=== PATIENT | female | born 1965 | race Caucasian/White ===

== ENCOUNTER 2025-08-28 10:22 | Outpatient (AMB) | payer BC, SELFPAY ==
--- NOTE | 2025-08-28 07:44 | MHC.PC.OV ---
Intake Visit Reasons: ? sinus infection PFSH Surgical History (Updated 08/27/25 @ 15:58 by Kathryn Robertson) History of colonoscopy (~01/02/17) Coding
--- NOTE | 2025-08-28 10:17 | A.OFFPC_ITS ---
Vital Signs 08/28/25 10:26 Height 5 ft 5 in Weight 166 lb 6 oz BMI 27.7 BP 120/76 Blood Pressure Location Lt brachial Position Sitting Respiration 16 Pulse 71 Pulse Source Pulse Oximeter Temp 97.3 F Temp Source Temporal Artery Scan Pulse Oximetry (%) 97 Oxygen Delivery Method Room Air Intake Visit Reasons: ? sinus infection Arc Welder Required: No Accompanied by: Self / Same As Patient Allergies erythromycin base Allergy (Intermediate, Verified 08/28/25 10:27) GI issues Medication List - Last Reconciled 08/28/25 by Mala Bacon MD aspirin 81 mg PO DAILY clobetasol 0.05% topical 2XW levocetirizine 5 mg PO DAILY metoprolol tartrate 50 mg PO BID multivitamin 1 tab PO DAILY pantoprazole 40 mg PO DAILY pravastatin 80 mg PO DAILY semaglutide (weight loss) (Wegovy) 2.4 mg subcut QWEEK Tobacco use date assessed: 08/28/25 Dental Screening Dental Screen Date: 08/28/25 Did you have a dental visit in the last 12 months?: Yes Was dental information given to patient?: Patient has dentist HPI HPI Comments History of Present Illness Details The patient is a 60-year-old female presenting to reestablish care with concern for sinusitis. Acute sinusitis: Symptoms started 2.5 weeks ago with a cold. Developed nasal congestion and green discharge, beginning Monday and persisting. Increased discharge led to nosebleeds from frequent blowing. Experiences ear pressure worsened by leaning forward. Humidifier and saline irrigation were utilized. No fever, chills, or ear pain. History of facial trauma: Past facial trauma resulted in recurrent drainage issues with colds. Expresses desire for ENT evaluation to explore possible structural issues due to trauma. Obesity/now in overweight category- on wegovy, tolerating well HTN-stable CAD s/p CABG-stable Social History: - Works from home occasionally - Has a daughter Review of Systems - Respiratory: Reports nasal congestion and green nasal discharge, denies wheezing. - Constitutional: Denies fever and chill s. - Ears: Denies pain, but reports ear pre ssure when blowing the nose. - Nasal: Reports epistaxis from frequent nose blowing. - General: No new significant issues rep orted. Physical Exam - Ears- Clear with no fluid and normal t ympanic membranes bilaterally - Throat- Clear with no abnormalities. - Respiratory- No wheezing noted on lung auscultation; clear breath sounds. - Cardiology- Soft murmur detected; no o ther abnormalities. - Abdomen- Soft with normal bowel sounds . - Neurology- No dizziness noted during e xamination. Assessment and Plan 1. Acute sinusitis - augmentin 10-day course. - Continue saline irrigation. - ENT referral pending. 2. HTN- continue current regimen 3. Obesity- continue wegovy 4. CAD- continue current regimen Follow up as scheduled in 1 month Discussion Notes I discussed with the patient the likely diagnosis of acute sinusitis, given her symptoms of nasal congestion, green discharge, and ear pressure. We decided to initiate treatment with amoxicillin for 10 days due to the persistence of symptoms and the lack of contraindications. I emphasized the importance of saline irrigation to manage nasal symptoms and prevent dryness. The patient expressed concern about potential sinus structural changes following a past trauma, so we discussed ENT evaluation to assess for any underlying issues. Patient Instructions - Take augmentin twice daily for 10 days with food. - Continue saline nasal sprays twice angela ly. - Use a humidifier at home. - Monitor symptoms, especially nosebleed s. - Complete the ENT referral and follow u p for further evaluation. - Start zinc supplements after finishing antibiotics. - Maintain effective hydration and monit or weight with Wegovy. 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 How often do you have a drink containing alcohol?: Monthly or less 2. How many drinks containing alcohol do you have on a typical day when you are drinking?: 1 or 2 3. How often do you have six or more drinks on one occasion?: Never Total Score: 1 Physical exam (Primary Care) Vital Signs: Last Vital Signs Temp 97.3 F 08/28/25 10:26 Pulse 71 08/28/25 10:26 Resp 16 08/28/25 10:26 BP 120/76 08/28/25 10:26 Pulse Ox 97 08/28/25 10:26 Oxygen Delivery Method Room Air 08/28/25 10:26 BMI result Body Mass Index 27.7 Tobacco/Smoking Status: Tobacco use Status Tobacco use date assessed 08/28/25 08/28/25 10:18 Patient Tobacco Use Status Former Tobacco user 08/28/25 10:33 e-Cigarette/Vaping Use Never Used 08/28/25 10:33 Coding Level of Care Code Est Pt Level 4 (61864) Complex EM visit Add On G2211 Diagnoses Acute bacterial sinusitis J01.90; B96.89 Primary hypertension I10 Overweight (BMI 25.0-29.9) E66.3 Assessment & Plan Assessment & Plan (1) Acute bacterial sinusitis: Code(s): J01.90 - Acute sinusitis, unspecified; B96.89 - Other specified bacterial agents as the cause of diseases classified elsewhere Category: Medical (2) Primary hypertension: Code(s): I10 - Essential (primary) hypertension Category: Medical (3) Overweight (BMI 25.0-29.9): Code(s): E66.3 - Overweight Category: Medical Plan - take augmentin twice daily for 10 days. - Saline irrigation twice daily. - Monitor sinus symptoms. - ENT referral post-antibiotics. - Consider zinc supplements after antibiotics. - Follow-up as needed based on symptom progression. Orders: Referrals Ear/Nose/Throat Referral J32.9 - Chronic sinusitis, unspecified Medications: New amoxicillin-pot clavulanate 875-125 mg 1 tab PO BID 20 tabs 0RF zinc gluconate 50 mg PO DAILY 30 tabs 5RF
[2025-08-28 10:26] VITALS: BP 120/76; PULSE 71; RESP 16; TEMP 36.3; O2SAT 97; BMI 27.7
--- OUTSIDE RECORDS SUMMARY | 2025-08-28 12:13 | XMS_ITS | Clinical Summary ---
Author Organization [facility] Address [address] [place] [address] Care Team Providers Care Electronic Specialist Name Role Phone Unknown Primary Care Provider [phone] Allergies No known active allergies Medications levocetirizine (XYZAL) 5 MG tablet 2 Active metoPROLOL TARTRATE (LOPRESSOR) 50 MG tablet metoprolol tartrate 50 mg tablet Active pravastatin (PRAVACHOL) 80 MG tablet pravastatin 80 mg tablet 2 Active Social History Tobacco Use Types Packs/Day Years Used Date Smoking Tobacco: Never Assessed Comments Unknown Sex and Gender Information Value Date Recorded Sex Assigned at Not on file Legal Sex Female 2:04 PM EDT Gender Identity Not on file Sexual Orientation Not on file Last Filed Vital Signs Vital Sign Reading Time Taken Comments Blood Pressure 150/76 06/12/2022 2:47 PM EDT Pulse 56 06/12/2022 2:47 PM EDT Temperature 36.6 C (97.8 F) 06/12/2022 2:47 PM EDT Respiratory Rate - - Oxygen Saturation 98% 06/12/2022 2:47 PM EDT Inhaled Oxygen Concentration - - Weight - - Height - - Body Mass Index - - Plan of Treatment Health Maintenance Due Date Last Done Comments Hepatitis C Virus Screening 1965 HIV Screening 1978 DTaP/Tdap/Td Vaccines (1 - Tdap) 01/27/1984 Pap Smear (Ages 21-65) 1986 Mammogram 2005 Colonoscopy 2010 Pneumococcal Vaccines 50+ (1 of 1 - PCV) 2015 Zoster (Shingles) Vaccine (1 of 2) 2015 Influenza Vaccine 05/23/2025 07/05/2021, , 07/25/2019, Additional history exists COVID-19 Vaccine (2024- season) 2025 08/20/2021, 02/05/2021, 01/08/2021 RSV Vaccine 50 years and older and Patients (1 - 1-dose 75+ series) 01/27/2040 Hepatitis B Vaccines Aged Out No long er eligible based on patient's age to complete this topic Insurance [facility] Care Teams Electronic Specialist Relationship Specialty Start Date End Date Unknown Unknow Provider Address PCP - General 10/23/21
--- OUTSIDE RECORDS SUMMARY | 2025-08-28 12:13 | XMS_ITS ---
Author Name [facility] Organization Unknown Encounters Encounter Type Encounter Reason Primary Diagnosis Location Date Ambulatory Contusion of rig ht hand, initial encounter [facility] 06/12/2022 Care Team Organization Name Specialty Phone Email Start Date End Da te [facility] 06/12/2022 06/12/2022 [facility] 06/12/2022
--- OUTSIDE RECORDS SUMMARY | 2025-08-28 12:13 | XMS_ITS | Data Portability ---
Author Organization [place] - [facility] Address [address] [place] [id number] Care Team Providers Care Regulatory Attorney Name Role Phone YAMILE NELL Primary Care Provider Assessment Encounter Date Assessment Date Assessment LastModified by Organization Details LastModified Time 12/22/2020 12/22/2020 Overview/History : 55-year-old female with past medical history significant for CAD status post bypass x4 and 2015, hyperlipidemia, new to [facility], who presents with complaints of COVID with persistent fever and cough. Patient had visit with primary care who ordered a chest x-ray to assess for possible pneumonia. Patient had this done at the hospital yesterday but has not heard results yet. Patient states today is the first day that she has not had a fever and that she is definitely feeling better today but still has a dry cough and loss of taste and smell. She has not taken any Tylenol or ibuprofen. She caught COVID from her and he did require hospitalization for oxygen desaturation and pneumonia but has now returned to baseline. Patient reports first developing a fever on 12/10/20 and was reported a positive result on to 12/14/20. She denies any chest pain, shortness of breath at rest, lightheadedness or weakness. She reports adequate p.o. intake. Recently finished course of AMOX for bacterial rhinosinusitis. Exam: afebrile, RRR, hypertensive, normal resps, O2 sat 98% on RA, non-toxic, well appearing. GENERAL: well developed, well nourished, appears stated age, sitting comfortably in no acute distress. HEENT: normocephalic, atraumatic, PERRLA, EOMI, sclera anicteric, nares patent, septum midline, turbinates erythematous, non-edematous, posterior pharynx without erythematous without lesions, mmm. NECK: trachea midline, no masses, cervical lymphadenopathy, or thyromegaly. RESP: normal I:E, breathing non-labored, no accessory muscle use, coarse crackles at the bilateral bases, no wheezes, rhonchi, or rales. CARDIO: RRR, normal S1, S2, no murmurs, rubs, or gallops, radial pulse 2+. MUSK: normal strength, ROM, muscle tone, no atrophy. EXTREMITIES: warm ,well perfused, no cyanosis, swelling or rashes. NEURO: awake, alert, oriented x3, no focal neuro deficits, moving all extremities spontaneously, normal brisk gait. DDx considered, but not limited to: COVID - known + bacterial PNA - less likely, afebrile, non-productive cough, no O2 desat, and recent ABX pleural effusion - unlikely, no decreased breath sounds pneumo - unlikely, no CP or absent breath sounds bronchitis - less likely, no wheeze Work up/Results: patient had CXR performed at hospital yesterday, not yet resulted. Plan/Discussion: -COVID, clinically stable at this time and symptoms improving -Continue symptomatic treatment with OTC Tylenol PRN fever -Continue tessalon perles, mucinex, and albuterol inhaler per PCP -Hydrate well -f/u CXR results with PCP -ER precautions given Thank you for your visit with [facility] today. We cannot always find the exact cause of your symptoms during your initial visit. Please follow up with your primary care provider or specialist to be rechecked or seek medical attention if your symptoms do not go away or get worse. If you develop any new or worsening symptoms and need after hours care, please go to nearest ER and/or call 911. If you have additional concerns or develop a change in your condition between 8am-10pm, please call [facility] at [phone] to help navigate your care. Proper Personal Protective Equipment (PPE), including gloves, eye protection, N95 mask, gown, and shoe covers were donned and doffed appropriately and all equipment cleaned using approved technique with germicidal disposable wipes prior to and after care of this patient according to [facility]'s infection prevention protocols. In order to obtain further information and compare any laboratory results/values, I have accessed patient records on the [employer] [facility]. This information was pertinent in my medical decision making today. Time On Scene with Patient: 00:29:28 taco Not available 12/22/2020 10:49:32 Plan of Treatment Reminders Order Date Submit Date Provider Last Modified By Organization Details Last Modified Time Details Appointments None record ed. Lab None record ed. Referral None record ed. Procedures None record ed. Surgeries None record ed. Imaging None record ed. Medication Orders None record ed. Patient TargetsNo targets recorded. Patient InstructionsNo instructions recorded. Reason for Referral None Reported. Problems Name Problem SNOMED Code Status Onset Date Resolution Date Notes Provider Name and Address Organization Details Recorded Time COVID- 19 [id number] Active 021 JOSEFINA RIZZO [address] [place], [phone] , [place] [facility] 12/22/2020 10:01:00 Problem Notes None recorded. Medical Equipment None Reported. Allergies Allergen ID Allergen Name Allergen Category Reaction Reaction Severity Criticality Documentation Date Start Date Code Code System Note Provider Name and Address Organization Details Recorded Time 025020 erythromy mariangel medicatio n Not available Not available Not available 12/22/2020 4053 RxNorm JOSEFINA RIZZO [address] [place], [phone], [place] [facility] 10:[facility]:53 Medications Name Sig Start Date Stop Date Status Note LastModified by Organization Details LastModified Time amoxicillin 500 mg capsule TAKE 1 CAPSULE BY MOUTH 3 TIMES A DAY FOR 7 DAYS 12/22 completed Not Available Not Available Not Available prednisone 10 mg tablet TAKE 4 TABLETS BY MOUTH EVERY DAY FOR 5 DAYS, TAKE IN AM WITH FOOD 12/22 completed Not Available Not Available Not Available pravastatin 80 mg tablet active Not Available Not Available Not Available benzonatate 100 mg capsule active Not Available Not Available Not Available metoprolol tartrate 50 mg tablet active Not Available Not Available No t Available albuterol sulfate HFA 90 mcg/actuatio n aerosol inhaler active Not Available Not Available Not Available amoxicillin 875 mg-potassium clavulanate 125 mg tablet TAKE 1 TABLET BY MOUTH TWICE A DAY FOR 10 DAYS WITH FOOD OR MILK 12/22 completed Not Available Not Available Not Available aspirin active Not Available Not Avail able Not Available Mucinex active Not Available Not Avail able Not Available Vitals Date Recorded Oxygen saturation Oxygen saturation in Arterial blood by Pulse oximetry Body temperature Heart rate Respiratory rate Systolic And Diastolic Provider Name and Address Organization Details Last Updated DateTime 98 % 98 % 98.3 [degF] 72 /min 20 /min 142/86 mm[Hg] Not Available [facility] 10:06:46 Social History Question Answer Notes LastModified by Organizat ion Details LastModified Time Tobacco Smoking Status Former Smoker JOSEFINA RIZZO [address] [place], [address], [place] [facility] 12/22/2020 10:05:37 Do You Have An Advance Directive? Yes [employer] Information not available 12/22/2020 What Is Your Code Status? Full Code [employer] Information not available 12/22/2020 Excessive Alcohol Or Drug Use No [employer] Information not available 12/22/2020 How Much Tobacco Do You Smoke? 2 PPW [employer] Information not available 12/22/2020 How Many Years Have You Smoked Tobacco? 10 [employer] Information not available 12/22/2020 Sex: Unknown Functional Status None recorded. Mental Status None recorded. Family History Relationship Description Onset Age of this Age Resolved Age Notes LastModified by Organization Details LastModified Time Brother Coronary arterioscler osis 41 [address] Not available 2020 10:06:31 Mother Coronary arterioscler osis badamski Not available 2020 10:06:31 Medical History Condition Response Coronary Artery Disease Y Depression N COPD N Diabetes N Cancer N Stroke N Asthma N High Cholesterol Y Pulmonary Embolism N Hypertension N Kidney Disease N Gynecological HistoryNo gynecological history recorded. Obstetrics History GPAL:G 0 P 0 0 0 0 Past Encounters Encounter ID Performer Location Encounter Start Date Encounter Closed Date Diagnosis/Indication Diagnosis SNOMED-CT Code Diagnosis ICD10 Code Diagnosis IMO Codes Diagnosis Note [id number] JOSEFINA RIZZO [facility] [address] [place] [address] 12/22/2020 09:59:23 12/22/2020 10:55:13 COVID-19 [id number] U07.1 Health Concerns Section Related Observation LastModified by Organization Detai ls LastModified Time None Recorded Concern Status LastModified by Organization Details LastModified Time None Recorded Advance Directives Directive Y: Payers Insurance Date Sequence Insurance Name Policy Number Policy Treviño Covered Member ID Treviño Member ID Guarantor Name 12/21/2020 1 [employer] [id number] Gwen Ponce [id number] Gwen Manasa 12/21/2020 1 [employer] [id number] Gwen Manasa [id number] Gwen Manasa 12/21/2020 1 [employer] [id number] Gwen Ponce [id number] Gwen Manasa 12/21/2020 1 *SELF PAY* Gwen Ponce [id number] Gwen Manasa Notes Date Note Type Note Provider Name and Address Organization Details Recorded Time 12/22/2020 text/html 55-year-old female with past medical history significant for CAD status post bypass x4 and 2015, hyperlipidemia, new to [facility], who presents with complaints of COVID with persistent fever and cough. Patient had visit with primary care who ordered a chest x-ray to assess for possible pneumonia. Patient had this done at the hospital yesterday but has not heard results yet. Patient states today is the first day that she has not had a fever and that she is definitely feeling better today but still has a dry cough and loss of taste and smell. She has not taken any Tylenol or ibuprofen. She caught COVID from her and he did require hospitalization for oxygen desaturation and pneumonia but has now returned to baseline. Patient reports first developing a fever on 12/10/20 and was reported a positive result on to 12/14/20. She denies any chest pain, shortness of breath at rest, lightheadedness or weakness. She reports adequate p.o. intake. Recently finished course of AMOX for bacterial rhinosinusitis. JOSEFINA RIZZO [address], [place], [address], [place] [facility] 12/22/2020 10:49:43 OBGyn Episode No OBEpisode recorded.
--- OUTSIDE RECORDS SUMMARY | 2025-08-28 12:13 | XMS_ITS | Clinical Summary ---
Author Organization [facility] Address [address] [place] [id number] Care Team Providers Care Anesthesiologist Assistant Name Role Phone Mala Bacon MD Primary Care Provider Immunizations Immunization Administration Dates Next Due Hep B, Adolescent or Pediatric 11/06/2013,2012 Hepatitis A 04/17/2014,09/26/2013 Hepatitis B 04/17/2014 IPV 01/12/2016 Influenza, Quad Single Dose PF 0.5mL 6+Mo 2016,09/23/2016 Influenza, trivalent (IIV3), split virus (single-dose) PF 09/21/2015,07/22/2014,07/22/2013 Tdap 12/22/2011,12/19/2010 Typhoid Inactivated 01/22/2018,01/12/2016 Zoster, Recombinant (Shingrix) 01/20/2019 Social History Tobacco Use Types Packs/Day Years Used Date Smoking Tobacco: Never Assessed Comments Unknown Sex and Gender Information Value Date Recorded Sex Assigned at Not on file Legal Sex Female 12:29 AM MST Gender Identity Not on file Sexual Orientation Not on file Plan of Treatment Health Maintenance Due Date Last Done Comments CT Colonography 1965 Cologuard 1965 FOBT/FIT 1965 Sigmoidoscopy 1965 MMR Vaccines (1 of 1 - Stand beck series) 1966 PHQ-9 Depression Screen 1977 Complete Annual HRA 1983 PARAS-7 Anxiety Screen 1983 Cervical Cancer Screening (Pap/HPV) 1986 Pneumococcal Vaccine: 50+ Ye ars (1 of 1 - PCV) 2015 Zoster Vaccines (2 of 2) 03/17/2019 01/20/2019 Mammogram 09/27/2020 09/27/2018, 03/2018, 08/30/2017, Additional history exists DTaP,Tdap,and Td Vaccines (3 - Td or Tdap) 12/21/2021 12/22/2011, 12/19/2010 COVID-19 Vaccine (1 - 2023-2 5 season) 2025 Influenza Vaccine (#1) 2025 7, 09/23/2016, 09/21/2015, Additional history exists Colonoscopy 01/02/2027 01/02/2017 Colorectal Cancer Screening 01/02/2027 RSV Vaccine (SCDM) (1 - 1-do se 75+ series) 01/27/2040 Hepatitis B Vaccines Completed 04/17/2014, 11/06/2013, 09/26/2013 Care Teams Anesthesiologist Assistant Relationship Specialty Start Date End Date Mala Bacon MD [address] [place] [address] PCP - General 10/21/20
== END 2025-08-28 11:10 | disposition home or self-care (01) ==
LOC: HO.HMCHD 10:23
PROVIDERS: PCP Internal Medicine; Visit Provider Internal Medicine
DX: J01.90 Acute sinusitis, unspecified (principal); B96.89 Other specified bacterial agents as the cause of diseases classified elsewhere; I10 Essential (primary) hypertension; E66.3 Overweight

== ENCOUNTER 2025-09-24 09:20 | Outpatient (AMB) | payer BC, SELFPAY ==
--- NOTE | 2025-09-24 09:32 | A.OFFPC_ITS ---
Vital Signs 09/24/25 09:33 Height 5 ft 5 in Weight 167 lb 2 oz BMI 27.8 BP 122/76 Blood Pressure Location Lt brachial Position Sitting Respiration 16 Pulse 68 Pulse Source Pulse Oximeter Temp 97.1 F Temp Source Temporal Artery Scan Pulse Oximetry (%) 97 Oxygen Delivery Method Room Air Intake Visit Reasons: Est Patient Speech Language Pathologist Assistant Required: No Accompanied by: Self / Same As Patient Allergies erythromycin base Allergy (Intermediate, Verified 09/24/25 09:35) GI issues amoxicillin Adverse Reaction (Intermediate, Verified 09/24/25 09:35) Itching Medication List - Last Reconciled 09/24/25 by Mala Bacon MD aspirin 81 mg PO DAILY clobetasol 0.05% topical 2XW levocetirizine 5 mg PO DAILY metoprolol tartrate 50 mg PO BID multivitamin 1 tab PO DAILY pantoprazole 40 mg PO DAILY pravastatin 80 mg PO DAILY semaglutide (weight loss) (Wegovy) 2.4 mg (0.75 mL) subcut QWEEK zinc gluconate 50 mg PO DAILY Tobacco use date assessed: 08/28/25 Dental Screening Dental Screen Date: 08/28/25 HPI HPI Comments History of Present Illness Details The patient is a 60 year old female presenting for follow up on chronic issues. Health Maintenance: The patient is compliant with health screenings. A recent mammogram was normal. The patient had a gynecology visit with Meño at [facility] during the summer. The patient has an upcoming cardiology appointment with Dr. Taylor. Hypertension: The patient's blood pressure has been stable and is monitored periodically. 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 Hyperlipidemia- on statin Impaired fasting glucose- due for repeat a1c Allergy: The patient reports a hypersensitivity to amoxicillin, which is now documented in the allergy profile. [facility] Medical History (Updated 09/24/25 @ 10:00 by Mala Bacon MD) Hyperlipidemia, unspecified Coronary artery disease Impaired fasting glucose Overweight (BMI 25.0-29.9) Primary hypertension Acute bacterial sinusitis Recurrent sinusitis Surgical History (Updated 09/24/25 @ 10:01 by Mala Bacon MD) H/O breast biopsy Hx of CABG History of colonoscopy (~01/02/17) Family History (Updated 09/23/25 @ 22:55 by Mala Bacon MD) Mother FH: CABG (coronary artery bypass surgery) Brother Heart attack Other Breast cancer Congestive heart failure Primary hypertension Social History Housing: House Patient Tobacco Use Status: Former Tobacco user Years Smoked: <10 years of social smoking e-Cigarette/Vaping Use: Never Used service: No Current occupational status: employed Current occupation: [employer] Questionnaire PHQ-9 Over the last 2 weeks, how often have you been bothered by any of the following problems? 1. Little interest or pleasure in doing things: not at all 2. Feeling down, depressed, or hopeless: not at all 3. Trouble falling or staying asleep, or sleeping too much: not at all 4. Feeling tired or having little energy: not at all 5. Poor appetite or overeating: not at all 6. Feeling bad about yourself - or that you are a failure or have let yourself or your family down: not at all 7. Trouble concentrating on things, such as reading the newspaper or watching television: not at all 8. Moving or speaking so slowly that other people could have noticed. Or the opposite - being so fidgety or restless that you have been moving around a lot more than usual: not at all 9. Thoughts that you would be better off or of hurting yourself in some way: not at all Total score: 0 Depression Screening Interpretation: Negative Depression Screening Done: Yes 34860 - PHQ-9 Billing: Yes Source: Developed by Drs. Al Keys, Honey Bergman, Dante Doherty and colleagues, with an educational juan from [employer]. AUDIT C Alcohol Use Questionnaire (AUDIT-C) 1. How often do you have a drink containing alcohol?: Monthly or less 2. How many drinks containing alcohol do you have on a typical day when you are drinking?: 1 or 2 3. How often do you have six or more drinks on one occasion?: Never Total Score: 1 Review of Systems Narrative Review of Systems -General: Reports feeling good and healthy. -Card: no chest pain, no sob Physical exam (Primary Care) Vital Signs: Last Vital Signs Temp 97.1 F 09/24/25 09:33 Pulse 68 09/24/25 09:33 Resp 16 09/24/25 09:33 BP 122/76 09/24/25 09:33 Pulse Ox 97 09/24/25 09:33 Oxygen Delivery Method Room Air 09/24/25 09:33 BMI result Body Mass Index 27.8 Tobacco/Smoking Status: Tobacco use Status Tobacco use date assessed 08/28/25 09/24/25 09:37 Patient Tobacco Use Status Former Tobacco user 09/24/25 09:37 e-Cigarette/Vaping Use Never Used 09/24/25 09:37 PHQ-9: PHQ-9 Score PHQ-9: Total score 0 09/24/25 10:00 Depression Screening Interpretation: Negative Narrative Physical Exam - Vitals: Blood pressure is 122/76 mmHg. - General: Appears well. - Respiratory: Lungs are clear to auscultation bilaterally - Cardiovascular: Normal heart sounds. Soft murmur across precordium Coding Level of Care Code Est Pt Level 4 (75917) Complex visit Add On G2211 Diagnoses Primary hypertension I10 Impaired fasting glucose R73.01 Coronary artery disease involving habematolel heart, unspecified vessel or lesion type, unspecified whether angina present I25.10 Associated angina: unspecified whether angina present Coronary Disease-Associated Artery/Lesion type: unspecified vessel or lesion type [place] vs. transplanted heart: habematolel heart Mixed hyperlipidemia E78.2 Hyperlipidemia type: mixed hyperlipidemia Additional Codes PHQ-9 - 60011 - PHQ-9 Billing: Yes ([id number]) Assessment & Plan Assessment & Plan (1) Primary hypertension: Code(s): I10 - Essential (primary) hypertension Category: Medical (2) Impaired fasting glucose: Code(s): R73.01 - Impaired fasting glucose Category: Medical (3) Coronary artery disease: Code(s): I25.10 - Atherosclerotic heart disease of habematolel coronary artery without angina pectoris Category: Medical Qualifiers: Associated angina: unspecified whether angina present Coronary Disease- Associated Artery/Lesion type: unspecified vessel or lesion type [place] vs. transplanted heart: habematolel heart Qualified Code(s): I25.10 - Atherosclerotic heart disease of habematolel coronary artery without angina pectoris (4) Hyperlipidemia, unspecified: Code(s): E78.5 - Hyperlipidemia, unspecified Category: Medical Qualifiers: Hyperlipidemia type: mixed hyperlipidemia Qualified Code(s): E78.2 - Mixed hyperlipidemia Plan Assessment and Plan 1. Health Maintenance - The patient is up-to-date with screenings, including a recent normal mammogram and gynecology visit. - Fasting labs, including a cholesterol profile and A1c, have been ordered. - A follow-up physical is scheduled for March. - The patient will continue with cardiology care. 2. Hypertension - The patient's blood pressure is stable at 122/76 mmHg. - Will continue current management and monitoring. 3. Hyperlipidemia - repeat lipid profile - continue statin 4. Impaired fasting glucose-repeat a1c Follow up in 6 months for physical Plan - Sent refill for levocetirizine to [facility]. - Ordered fasting labs, including cholesterol profile and HbA1c. - Patient to continue with scheduled cardiology follow-up . Patient Instructions - A prescription refill for Levocetirizine has been sent to your [facility] pharmacy. - Please go for your fasting lab work (no food or drink for 8-10 hours) at a walk-in lab. Orders: Orders Complete Blood Count Auto Diff Today I10 - Essential (primary) hypertension, R73.01 - Impaired fasting glucose Comprehensive Met. Panel Today I10 - Essential (primary) hypertension, R73.01 - Impaired fasting glucose Microalbumin, Random (w Creat) Today I10 - Essential (primary) hypertension, R73.01 - Impaired fasting glucose Lipid Panel Today I10 - Essential (primary) hypertension, R73.01 - Impaired fasting glucose Hemoglobin A1c Today I10 - Essential (primary) hypertension, R73.01 - Impaired fasting glucose Medications: New levocetirizine 5 mg PO DAILY 90 tabs 3RF
[2025-09-24 09:33] VITALS: BP 122/76; PULSE 68; RESP 16; TEMP 36.2; O2SAT 97; BMI 27.8
--- OUTSIDE RECORDS SUMMARY | 2025-09-24 10:08 | XMS_ITS | Clinical Summary ---
Author Organization [facility] Address [address] [place] [address] Care Team Providers Care Filler Sifter Helper Name Role Phone Unknown Primary Care Provider [...] patient's age to complete this topic Insurance [facility] Care Teams Filler Sifter Helper Relationship Specialty Start Date End Date Unknown Unknow Provider Address PCP - General 10/23/21
--- OUTSIDE RECORDS SUMMARY | 2025-09-24 10:08 | XMS_ITS | Clinical Summary ---
Author Organization [facility] Address [address] [place] [address] Care Team Providers Care Assembler Handbags Name Role Phone Mala Bacon MD Primary [...] Vaccines Completed 04/17/2014, 11/06/2013, 09/26/2013 Care Teams Assembler Handbags Relationship Specialty Start Date End Date Mala Bacon MD [address] [address] PCP - General 10/21/20
== END 2025-09-24 09:49 | disposition home or self-care (01) ==
LOC: HO.HMCHD 09:21
PROVIDERS: PCP Internal Medicine; Visit Provider Internal Medicine
DX: I10 Essential (primary) hypertension (principal); R73.01 Impaired fasting glucose; I25.10 Atherosclerotic heart disease of native coronary artery without angina pectoris; E78.2 Mixed hyperlipidemia

== ENCOUNTER → 2025-09-24 09:20 | Outpatient (BNVA) | payer BC, SELFPAY | PROVIDERS: PCP Internal Medicine; Visit Provider Internal Medicine | DX: I10 Essential (primary) hypertension (principal); R73.01 Impaired fasting glucose; I25.10 Atherosclerotic heart disease of native coronary artery without angina pectoris; E78.2 Mixed hyperlipidemia | CPT/HCPCS: 96127 ==

== ENCOUNTER 2025-09-26 07:24 | Outpatient (REF) | payer BC, SELFPAY ==
--- OUTSIDE RECORDS SUMMARY | 2025-09-26 07:29 | XMS_ITS | Data Portability ---
Author Organization [place] [facility] Address [address] [place] [id number] Care Team Providers Care Bellperson Name Role Phone YAMILE NELL Primary Care Provider Assessment Encounter Date Assessment Date Assessment LastModified by Organization Details LastModified Time 12/22/2020 12/22/2020 Overview/History : 55-year-old female with past medical history significant for CAD status post bypass x4 and 2015, hyperlipidemia, new to [facility], who presents with complaints of COVID with [...] given Thank you for your visit with [facility] today. We cannot always find the exact [...] in your condition between 8am-10pm, please call [facility] at [phone] to help navigate your care. Proper Personal Protective Equipment (PPE), including gloves, eye protection, N95 mask, gown, and shoe covers were donned and doffed appropriately and all equipment cleaned using approved technique with germicidal disposable wipes prior to and after care of this patient according to [facility]'s infection prevention protocols. In order to obtain [...] Address Organization Details Recorded Time COVID- 19 [id number] Active 021 JOSEFINA R[address]ZO [address] [place], [address] , [place] [facility] 12/22/2020 10:01:00 Problem Notes None recorded. Medical Equipment None Reported. Allergies Allergen ID Allergen Name Allergen Category Reaction Reaction Severity Criticality Documentation Date Start Date Code Code System Note Provider Name and Address Organization Details Recorded Time 251450 erythromy mariangel medicatio n Not available Not available Not available 12/22/2020 4053 RxNorm JOSEFINA RIZZO [address] [place], [phone], [place] [facility] 10:00:53 Medications Name Sig Start [...] Not Available Vitals Date Recorded Oxygen saturation Body temperature Heart rate Respiratory rate Systolic And Diastolic Provider Name and Address Organization Details Last Updated DateTime 98 % 98.3 [degF] 72 /min 20 /min 142/86 mm[Hg] Not Available [facility] 10:06:46 Social History Question Answer Notes LastModified by Organizat ion Details LastModified Time Tobacco Smoking Status Former Smoker JOSEFINA RIZZO [address] [place], [address], [place] [facility] 12/22/2020 10:05:37 Do You Have An Advance Directive? Yes [facility] Information not available 12/22/2020 What Is Your Code Status? Full Code [facility] Information not available 12/22/2020 Excessive Alcohol Or Drug Use No [facility] Information not available 12/22/2020 How Much Tobacco Do You Smoke? 2 PPW [facility] Information not available 12/22/2020 How Many Years Have You Smoked Tobacco? 10 [facility] Information not available 12/22/2020 Sex: Unknown Functional [...] ICD10 Code Diagnosis IMO Codes Diagnosis Note [id number] JOSEFINA RIZZO [facility] [address] [place] [address] 12/22/2020 09:59:23 12/22/2020 10:55:13 COVID-19 [id number] U07.1 Health Concerns Section Related Observation LastModified by Organization Detai ls LastModified Time None Recorded Concern Status LastModified by Organization Details LastModified Time None Recorded Advance Directives Directive Y: Payers Insurance Date Sequence Insurance Name Policy Number Policy Treviño Covered Member ID Treviño Member ID Guarantor Name 12/21/2020 1 [employer] [id number] Gwen Manasa [id number] Gwen Manasa 12/21/2020 1 [employer] [id number] Gwen Manasa [id number] Gwen Manasa 12/21/2020 1 [employer] [id number] Gwen Dickens [id number] Gwen Manasa 12/21/2020 1 *SELF PAY* Gwen Manasa [id number] Gwen Manasa Notes Date Note Type Note Provider Name and Address Organization Details Recorded Time 12/22/2020 text/html 55-year-old female with past medical history significant for CAD status post bypass x4 and 2015, hyperlipidemia, new to [facility], who presents with complaints of COVID with [...] bacterial rhinosinusitis. JOSEFINA RIZZO [address], [place], [address], [place] [facility] 12/22/2020 10:49:43 OBGyn Episode No OBEpisode recorded.
--- OUTSIDE RECORDS SUMMARY | 2025-09-26 07:29 | XMS_ITS | Clinical Summary ---
Author Organization [facility] Address [address] [place] [address] Care Team Providers Care Medical Associate Name Role Phone Mala Bacon MD Primary Care Provider [phone] Immunizations Immunization Administration Dates Next Due Hep [...] Vaccines Completed 04/17/2014, 11/06/2013, 09/26/2013 Care Teams Medical Associate Relationship Specialty Start Date End Date Mala Bacon MD [address] [place] [address] PCP - General 10/21/20
--- OUTSIDE RECORDS SUMMARY | 2025-09-26 07:29 | XMS_ITS | Clinical Summary ---
Author Organization [facility] Address [address] [place] [address] Care Team Providers Care Engineer Technician Name Role Phone Unknown Primary Care Provider [...] patient's age to complete this topic Insurance [facility] Care Teams Engineer Technician Relationship Specialty Start Date End Date Unknown Unknow Provider Address PCP - General 10/23/21
[2025-09-26 07:44] LABS: MANUAL DIFF FLAG NO
[2025-09-26 07:50] LABS: Hematocrit 42.6 % (37.0-47.0); Hemoglobin 13.7 g/dl (12.0-16.0); Imm Gran Abs Auto 0.05 X10*3/uL (0.00-0.03); Imm Gran Pct Auto 0.8 % (0.0-0.4); Lymphocytes Absolute Auto 2.1 X10*3/uL (1.2-4.9); Mean Corpuscular HGB Conc 32.2 g/dl (31.0-35.0); Mean Corpuscular Hemoglobin 30.2 pg (27.0-33.0); Mean Corpuscular Volume 94.0 fL (80.0-98.0); NRBC Abs Auto 0.000 X10*3/uL (0.0-0.012); NRBC Pct Auto 0.0 /100WBC (0.0-0.2); Platelet Count 276 X10*3/uL (160-400); Red Blood Count 4.53 X10*6/uL (4.20-5.50); White Blood Count 6.3 X10*3/uL (4.8-10.8)
[2025-09-26 08:42] LABS: Alanine Aminotransferase 17 U/L (0-31); Albumin Level 4.6 g/dL (3.5-5.0); Alkaline Phosphatase 58 U/L (39-117); Anion Gap 13 (12-20); Aspartate Amino Transferase 21 U/L (5-31); Blood Urea Nitrogen 8 mg/dL (9-16); Calcium 9.7 mg/dL (8.4-10.2); Carbon Dioxide 27 mmol/L (22-29); Chloride 104 mmol/L (96-108); Cholesterol 142 mg/dL (<200); Estimated Glomerular Filt Rate > 60; HDL Cholesterol 56 mg/dL (>40); Potassium 4.5 mmol/L (3.3-5.1); Sodium 139 mmol/L (135-145); Total Protein 7.0 g/dL (6.5-8.0); Triglycerides 68 mg/dL (<150)
== END 2025-09-26 07:25 | disposition home or self-care (01) ==
LOC: HO.LAB 07:24
PROVIDERS: PCP Internal Medicine; Visit Provider Internal Medicine
DX: I10 Essential (primary) hypertension (principal); R73.01 Impaired fasting glucose
CPT/HCPCS: 36415; 80053; 80061; 82043; 82570; 83036; 85025